=== PATIENT | female | born 1980 | race African-American/Black ===

== ENCOUNTER 2022-05-28 06:41 | Emergency (ER) | payer OTHER ==
[~2022-05-28] VITALS: Ht 175.3 cm; Wt 76.2 kg
[2022-05-28] MEDS ORDERED: OMEPRAZOLE40 MG (07:01)
== END 2022-05-28 12:26 | disposition home or self-care (01) ==
LOC: ER 06:41
DX: K58.9 Irritable bowel syndrome, unspecified (principal)